=== PATIENT | female | born 1980 | race Caucasian/White ===

== ENCOUNTER 2022-07-25 06:18 | Day surgery (SDC) | payer SELFPAY ==
[2022-07-23 17:37] VITALS: BMI 18.6
[2022-07-25] MEDS ORDERED: ceFAZolin SODIUM 1 GM VIAL ONE (07:11)
[2022-07-25] MEDS ORDERED: GENTAMICIN SO4 80 MG/2 ML VIAL ONE (07:11)
[2022-07-25] MEDS ORDERED: VANCOMYCIN 1,000 MG VIAL (RESTRICTED TO ID ONLY) ONE (07:11)
[2022-07-25] MEDS ORDERED: BUPIVACAINE HCL/EPINEPHRINE/PF 30 ML VIAL IJ ONE (07:12)
[2022-07-25] MEDS ORDERED: PROPOFOL 40 ML ONE (07:49)
[2022-07-25] MEDS ORDERED: MIDAZOLAM HCL 2 MG/2 ML SINGLE DOSE VIAL ONE (07:49)
[2022-07-25] MEDS ORDERED: SUCCINYLCHOLINE CHLORIDE 200 MG/10 ML SYRINGE ONE (07:49)
[2022-07-25] MEDS ORDERED: GLYCOPYRROLATE 0.2 MG/1 ML VIAL ONE (08:13)
[2022-07-25] MEDS ORDERED: HYDROmorphone HCL/PF 1 MG/ML VIAL ONE (09:18)
[2022-07-25] MEDS ORDERED: oxyCODONE HCL 5 MG TABLET PO PRN ×2 (09:57)
[2022-07-25] MEDS ORDERED: ONDANSETRON 4 MG/2 ML VIAL IVPUSH PRN (09:57)
[2022-07-25] MEDS ORDERED: PROMETHAZINE HCL 25 MG/1 ML VIAL IVPUSH PRN (09:57)
[2022-07-25] MEDS ORDERED: ACETAMINOPHEN 325 MG TABLET (FP) PO PRN (09:57)
[2022-07-25 10:26] VITALS: TEMP 97
[2022-07-25 11:06] VITALS: RESP 16
[2022-07-25 11:31] VITALS: BP 111/68; PULSE 54
== END 2022-07-25 11:31 | disposition home or self-care (01) ==
LOC: FASU 06:18
PROVIDERS: ATTEND Plastic Surgery
PROC: 0H0V0JZ Alteration of Bilateral Breast with Synthetic Substitute, Open Approach (ICD-10-PCS; principal; 2022-07-25 08:20)
DX: N64.81 Ptosis of breast (principal); N64.82 Hypoplasia of breast
CPT/HCPCS: 19316; 19325; L8600; 81025; 94760